=== PATIENT | female | born 1935 | race Caucasian/White ===

== ENCOUNTER 2017-08-24 14:57 | Emergency (ER) | payer MEDICARE, BC ==
[~2017-08-24] VITALS: Ht 165.1 cm; Wt 78.0 kg
[~2017-08-24 14:57] MED LIST: AMIT10TA PO; ASPI-496 PO; CALC200T3 PO; CARV12.52 PO; CARV3.1212 PO; DIGO125T PO; DONE10TA14 PO; FOLI1TAB7 PO; HYDR-3240 PO; INSU500V SQ; LEVO500T47 PO; MAGN400T26 PO; METF500T4 PO; METH10TA6 PO; METH5TAB6 PO; POLY17PO5 PO; SIMV40TA3 PO; SITA100T PO; TRIA1CAP3 PO; ZOLP10TA5 PO
[2017-08-24] MEDS ORDERED: LIDOCAINE 1%, 20ML ONE (15:22)
[2017-08-24] MEDS ORDERED: DIPH,PERTUSS(ACELL),TET VAC/PF 0.5 ML IM-VACC ONE ×2 (15:22→15:30)
[2017-08-24] MEDS ORDERED: LIDOCAINE 1%-EPI 1:100K, 20ML SQ ONE (15:30)
[2017-08-24 15:41] VITALS: BP 169/91
[2017-08-24] MEDS ORDERED: ACETAMINOPHEN 325 MG TABLET ONE (16:38)
[2017-08-24] MEDS ORDERED: ACETAMINOPHEN 325 MG TABLET PO ONE (17:00)
== END 2017-08-24 18:33 | disposition home or self-care (01) ==
LOC: ED 15:33
DX: S01.01XA Laceration without foreign body of scalp, initial encounter (principal); I10 Essential (primary) hypertension; E11.9 Type 2 diabetes mellitus without complications; W19.XXXA Unspecified fall, initial encounter; Y93.89 Activity, other specified; Y92.009 Unspecified place in unspecified non-institutional (private) residence as the place of occurrence of the external cause; Y99.9 Unspecified external cause status
CPT/HCPCS: 12002; 70450; 90471; 90715; 93005; 99284; J3490

== ENCOUNTER 2018-04-22 18:32 | Inpatient (IN) | payer MEDICARE, BC ==
[~2018-04-22] VITALS: Ht 165.1 cm; Wt 72.1 kg
[~2018-04-22 18:32] MED LIST changes: -METF500T4 PO; +METF500T5 PO
[2018-04-22 19:06] LABS: BASOPHILS # (AUTO) 0.04 x10^3/uL (0-0.1); BASOPHILS % (AUTO) 0 % (0-1); EOSINOPHILS % (AUTO) 0 % (1-7); LYMPHOCYTES # (AUTO) 0.71 x10^3/uL (1-3.4); LYMPHOCYTES % (AUTO) 6 % (22-44); MD NO; MEAN CORPUSCULAR HGB CONC 33.4 g/dL (32.4-35.8); MEAN PLATELET VOLUME 8.8 fL (7.4-10.4); MONOCYTES # (AUTO) 0.54 x10^3/uL (0.2-0.8); MONOCYTES % (AUTO) 4 % (2-9); NEUTROPHILS # (AUTO) 11.29 x10^3/uL (1.8-6.8); NEUTROPHILS % (AUTO) 90 % (42-75); PLATELET COUNT 224 x10^3/uL (130-400); RED CELL DISTRIBUTION WIDTH 16.8 % (9.6-15.2)
[2018-04-22 19:17] LABS: ALBUMIN 3.6 g/dL (3.4-5.0); ANION GAP 12 mmol/L (5-15); CALCIUM 10.6 mg/dL (8.5-10.1); CHLORIDE 108 mmol/L (98-107); CREATININE 2.98 mg/dL (0.55-1.02)
[2018-04-22] MEDS ORDERED: ZOLP10TA5 PO (19:23)
[2018-04-22] MEDS ORDERED: HYDR-3245 PO (19:24)
[2018-04-22] MEDS ORDERED: GLIP2.5T16 PO (19:25)
[2018-04-22] MEDS ORDERED: DILT240C PO (19:26)
[2018-04-22] MEDS ORDERED: LISI-167 PO (19:27)
[2018-04-22] MEDS ORDERED: SITA100T PO (19:28)
[2018-04-22] MEDS ORDERED: SODIUM CHLORIDE 0.9% 1,000ML IVBOLUS ONE (19:30)
[2018-04-22] MEDS ORDERED: NPH,100V SQ-INSULIN (19:32)
[2018-04-22 19:40] LABS: TROPONIN I 0.033 ng/mL (0.000-0.045)
[2018-04-22] MEDS ORDERED: SODIUM CHLORIDE 0.9% 1,000 ML IV ONE (20:19)
[2018-04-22] MEDS: PLEASE ENTER HEIGHT AND WEIGHT MC SCH (20:28)
[2018-04-22] MEDS: PLEASE ENTER ALLERGIES MC SCH (20:28)
[2018-04-22] MEDS ORDERED: ONDANSETRON 2MG/ML, 2ML IVPush PRN ×2 (20:30→21:00)
[2018-04-22] MEDS ORDERED: D5%-0.45NACL+KCL 20MEQ 1,000 ML IV SCH (20:57)
[2018-04-22] MEDS ORDERED: hydrALAzine 20 MG/ML, 1ML IVPush PRN (21:00)
[2018-04-22] MEDS ORDERED: POLYETHYLENE GLYCOL 17 GM PACKET PO PRN (21:00)
[2018-04-22] MEDS ORDERED: BISACODYL 10 MG SUPP PR PRN (21:00)
[2018-04-22 21:04] LABS: CULTURE INDICATED? YES; MICROSCOPIC INDICATED
[2018-04-22] MEDS ORDERED: DEXTROSE 50%, 50ML SYRINGE ONE (21:14)
[2018-04-22] MEDS ORDERED: INSULIN REGULAR 100 UNITS/ML, 3ML VIAL ONE (21:15)
[2018-04-22] MEDS ORDERED: DEXTROSE 50%, 50ML SYRINGE IVPush ONE (21:30)
[2018-04-22] MEDS ORDERED: INSULIN REGULAR 100 UNITS/ML, 3ML VIAL IVPush ONE (21:30)
[2018-04-22 21:50] LABS: % IRON SATURATION 14 % (20-55); ANION GAP 15 mmol/L (5-15); CALCIUM 9.9 mg/dL (8.5-10.1); CHLORIDE 107 mmol/L (98-107); CREATININE 2.73 mg/dL (0.55-1.02); IRON LEVEL 39 mcg/dL (50-170); TOTAL IRON BINDING CAPACITY 279 mcg/dL (250-450)
[2018-04-22 21:54] LABS: TRANSFERRIN 216 mg/dL (200-360); TROPONIN I 0.041 ng/mL (0.000-0.045)
[2018-04-22 22:00] VITALS: BP 158/60
[2018-04-22] MEDS ORDERED: D5%-0.45% NACL 1,000 ML IV SCH (22:00)
[2018-04-22] MEDS: ACETAMINOPHEN 325 MG TABLET PO PRN (22:35)
[2018-04-22] MEDS: HEPARIN 5,000 UNITS/ML, 1ML SQ SCH (22:35)
[2018-04-23 01:12] LABS: CREATININE,URINE RANDOM 56.2 mg/dL
[2018-04-23 01:40] VITALS: BP 138/75
[2018-04-23] MEDS: ACETAMINOPHEN 325 MG TABLET PO PRN (02:47)
[2018-04-23] MEDS: PLEASE ENTER HEIGHT AND WEIGHT MC SCH ×2 (03:43→12:00)
[2018-04-23] MEDS: PLEASE ENTER ALLERGIES MC SCH ×2 (03:44→12:00)
[2018-04-23 05:33] LABS: MEAN CORPUSCULAR HEMOGLOBIN 31.8 pg (27.0-34.8); MEAN CORPUSCULAR HGB CONC 33.2 g/dL (32.4-35.8); MEAN CORPUSCULAR VOLUME 95.9 fL (80-100); MEAN PLATELET VOLUME 8.6 fL (7.4-10.4); PLATELET COUNT 217 x10^3/uL (130-400); RED BLOOD COUNT 3.08 x10^6/uL (3.82-5.3); RED CELL DISTRIBUTION WIDTH 17.3 % (9.6-15.2)
[2018-04-23 05:45] LABS: ALANINE AMINOTRANSFERASE 34 U/L (12-78); ALBUMIN 3.2 g/dL (3.4-5.0); ANION GAP 15 mmol/L (5-15); CHLORIDE 110 mmol/L (98-107)
[2018-04-23 05:50] LABS: ALKALINE PHOSPHATASE 154 U/L (45-117); BILIRUBIN,TOTAL 1.4 mg/dL (0.2-1.0); CREATININE 2.86 mg/dL (0.55-1.02); TOTAL PROTEIN 6.9 g/dL (6.4-8.2); TROPONIN I 0.087 ng/mL (0.000-0.045)
[2018-04-23] MEDS: HEPARIN 5,000 UNITS/ML, 1ML SQ SCH ×3 (05:56→23:27)
[2018-04-23] MEDS: CARVEDILOL 3.125 MG TABLET PO SCH ×2 (05:56→17:37)
[2018-04-23 06:10] LABS: BASOPHILS # (AUTO) 0.11 x10^3/uL (0-0.1); BASOPHILS % (AUTO) 1 % (0-1); EOSINOPHILS % (AUTO) 0 % (1-7); LYMPHOCYTES # (AUTO) 1.01 x10^3/uL (1-3.4); LYMPHOCYTES % (AUTO) 8 % (22-44); MD SCAN; MONOCYTES # (AUTO) 1.08 x10^3/uL (0.2-0.8); MONOCYTES % (AUTO) 9 % (2-9); NEUTROPHILS % (AUTO) 83 % (42-75)
[2018-04-23 07:26] VITALS: BP 167/62
[2018-04-23] MEDS: DONEPEZIL 10 MG TABLET PO SCH (07:56)
[2018-04-23] MEDS: HYDROcodone/APAP 10/325 MG TABLET PO SCH (07:57)
[2018-04-23] MEDS: MULTIVITAMIN 1 TABLET PO SCH (07:57)
[2018-04-23] MEDS: ASPIRIN 81 MG TABLET EC PO SCH (07:57)
[2018-04-23] MEDS: DILTIAZEM 240 MG CAP.ER.24H PO SCH (07:57)
[2018-04-23] MEDS: AMITRIPTYLINE 10 MG TABLET PO SCH ×2 (07:57→23:27)
[2018-04-23] MEDS: ATORVASTATIN 20 MG TABLET PO SCH (07:57)
[2018-04-23] MEDS: INSULIN LISPRO 100 UNITS/ML, PEN SQ-INSULIN SCH ×4 (09:02→23:26)
[2018-04-23] MEDS: SODIUM CHLORIDE 0.9% 1,000 ML IV SCH ×2 (11:04→23:27)
[2018-04-23] MEDS: CEFTRIAXONE PMX 1GM/50ML 50 ML IV SCH (11:04)
[2018-04-23 11:32] LABS: TROPONIN I 0.092 ng/mL (0.000-0.045)
[2018-04-23] MEDS ORDERED: MORPHINE SULFATE 4 MG/ML, 1ML ONE (11:41)
[2018-04-23] MEDS: morphine SULFATE 10 MG/ML, 1ML IVPush PRN ×2 (11:47→17:04)
[2018-04-23 12:45] VITALS: BP 114/67
[2018-04-23 15:54] LABS: TROPONIN I 0.083 ng/mL (0.000-0.045)
[2018-04-23 18:58] VITALS: BP 129/72
[2018-04-23] MEDS: INSULIN REGULAR 100 UNITS/ML, 3ML VIAL SQ-INSULIN SCH (23:27)
[2018-04-24 00:57] VITALS: BP 124/78
[2018-04-24 05:40] LABS: MEAN CORPUSCULAR HEMOGLOBIN 32.2 pg (27.0-34.8); MEAN CORPUSCULAR HGB CONC 33.7 g/dL (32.4-35.8); MEAN CORPUSCULAR VOLUME 95.5 fL (80-100); MEAN PLATELET VOLUME 8.6 fL (7.4-10.4); PLATELET COUNT 220 x10^3/uL (130-400)
[2018-04-24] MEDS: HEPARIN 5,000 UNITS/ML, 1ML SQ SCH ×3 (05:42→21:57)
[2018-04-24] MEDS: morphine SULFATE 10 MG/ML, 1ML IVPush PRN ×4 (05:42→22:28)
[2018-04-24] MEDS: CARVEDILOL 3.125 MG TABLET PO SCH ×2 (05:45→17:45)
[2018-04-24] MEDS: SODIUM CHLORIDE 0.9% 1,000 ML IV SCH ×2 (05:47→22:17)
[2018-04-24 05:54] LABS: CHLORIDE 112 mmol/L (98-107)
[2018-04-24 06:08] LABS: ALANINE AMINOTRANSFERASE 29 U/L (12-78); ALKALINE PHOSPHATASE 131 U/L (45-117); ANION GAP 12 mmol/L (5-15); BILIRUBIN,TOTAL 0.8 mg/dL (0.2-1.0); CALCIUM 12.1 mg/dL (8.5-10.1); CREATININE 1.61 mg/dL (0.55-1.02); TOTAL PROTEIN 6.4 g/dL (6.4-8.2)
[2018-04-24 06:09] LABS: BASOPHILS # (AUTO) 0.12 x10^3/uL (0-0.1); BASOPHILS % (AUTO) 1 % (0-1); EOSINOPHILS # (AUTO) 0.09 x10^3/uL (0-0.4); EOSINOPHILS % (AUTO) 1 % (1-7); LYMPHOCYTES # (AUTO) 1.28 x10^3/uL (1-3.4); LYMPHOCYTES % (AUTO) 11 % (22-44); MD SCAN; MONOCYTES # (AUTO) 1.59 x10^3/uL (0.2-0.8); MONOCYTES % (AUTO) 13 % (2-9); NEUTROPHILS # (AUTO) 8.88 x10^3/uL (1.8-6.8); NEUTROPHILS % (AUTO) 74 % (42-75)
[2018-04-24 06:23] LABS: HEMOGLOBIN A1C 7.4 % (4.2-6.3)
[2018-04-24 07:14] VITALS: BP 137/68
[2018-04-24] MEDS: HYDROcodone/APAP 10/325 MG TABLET PO SCH (08:30)
[2018-04-24] MEDS: DILTIAZEM 240 MG CAP.ER.24H PO SCH (08:30)
[2018-04-24] MEDS: INSULIN LISPRO 100 UNITS/ML, PEN SQ-INSULIN SCH ×4 (08:31→21:59)
[2018-04-24] MEDS: DONEPEZIL 10 MG TABLET PO SCH (08:31)
[2018-04-24] MEDS: MULTIVITAMIN 1 TABLET PO SCH (08:31)
[2018-04-24] MEDS: ATORVASTATIN 20 MG TABLET PO SCH (08:31)
[2018-04-24] MEDS: ASPIRIN 81 MG TABLET EC PO SCH (08:31)
[2018-04-24] MEDS: AMITRIPTYLINE 10 MG TABLET PO SCH ×2 (08:31→22:00)
[2018-04-24] MEDS: DOCUSATE 100 MG CAPSULE PO PRN (10:58)
[2018-04-24] MEDS: CEFTRIAXONE PMX 1GM/50ML 50 ML IV SCH (10:58)
[2018-04-24 13:40] VITALS: BP 124/74
[2018-04-24 19:39] VITALS: BP 130/75
[2018-04-24] MEDS: INSULIN REGULAR 100 UNITS/ML, 3ML VIAL SQ-INSULIN SCH (21:59)
[2018-04-25 02:05] VITALS: BP 156/80
[2018-04-25] MEDS: morphine SULFATE 10 MG/ML, 1ML IVPush PRN (02:30)
[2018-04-25 05:25] VITALS: BP 145/84
[2018-04-25] MEDS: SODIUM CHLORIDE 0.9% 1,000 ML IV SCH (05:27)
[2018-04-25] MEDS: CARVEDILOL 3.125 MG TABLET PO SCH ×2 (05:27→17:24)
[2018-04-25] MEDS: HEPARIN 5,000 UNITS/ML, 1ML SQ SCH ×2 (05:27→12:31)
[2018-04-25 05:56] LABS: ALBUMIN 2.8 g/dL (3.4-5.0); ANION GAP 9 mmol/L (5-15); CALCIUM 11.2 mg/dL (8.5-10.1); CHLORIDE 113 mmol/L (98-107)
[2018-04-25 05:59] LABS: BASOPHILS # (AUTO) 0.07 x10^3/uL (0-0.1); BASOPHILS % (AUTO) 1 % (0-1); EOSINOPHILS # (AUTO) 0.19 x10^3/uL (0-0.4); EOSINOPHILS % (AUTO) 2 % (1-7); LYMPHOCYTES # (AUTO) 1.49 x10^3/uL (1-3.4); LYMPHOCYTES % (AUTO) 17 % (22-44); MD NO; MEAN CORPUSCULAR HEMOGLOBIN 32.4 pg (27.0-34.8); MEAN CORPUSCULAR VOLUME 95.2 fL (80-100); MEAN PLATELET VOLUME 8.8 fL (7.4-10.4); MONOCYTES # (AUTO) 1.34 x10^3/uL (0.2-0.8); MONOCYTES % (AUTO) 15 % (2-9); NEUTROPHILS % (AUTO) 66 % (42-75); PLATELET COUNT 207 x10^3/uL (130-400); RED BLOOD COUNT 2.77 x10^6/uL (3.82-5.3); RED CELL DISTRIBUTION WIDTH 17.4 % (9.6-15.2)
[2018-04-25 06:00] LABS: ALANINE AMINOTRANSFERASE 25 U/L (12-78); ALKALINE PHOSPHATASE 116 U/L (45-117); BILIRUBIN,TOTAL 0.8 mg/dL (0.2-1.0); CREATININE 1.04 mg/dL (0.55-1.02); TOTAL PROTEIN 6.1 g/dL (6.4-8.2)
[2018-04-25 07:38] VITALS: BP 162/83
[2018-04-25] MEDS: AMITRIPTYLINE 10 MG TABLET PO SCH (09:11)
[2018-04-25] MEDS: DILTIAZEM 240 MG CAP.ER.24H PO SCH (09:11)
[2018-04-25] MEDS: MULTIVITAMIN 1 TABLET PO SCH (09:11)
[2018-04-25] MEDS: ASPIRIN 81 MG TABLET EC PO SCH (09:11)
[2018-04-25] MEDS: DONEPEZIL 10 MG TABLET PO SCH (09:11)
[2018-04-25] MEDS: HYDROcodone/APAP 10/325 MG TABLET PO SCH (09:11)
[2018-04-25] MEDS: INSULIN LISPRO 100 UNITS/ML, PEN SQ-INSULIN SCH ×3 (09:12→17:24)
[2018-04-25] MEDS ORDERED: SODIUM CHLORIDE 0.9% 1,000ML IVBOLUS ONE (10:00)
[2018-04-25] MEDS ORDERED: SODIUM CHLORIDE 0.9% 1,000 ML IV SCH (10:00)
[2018-04-25 11:32] LABS: CALCIUM 11.7 mg/dL (8.5-10.1)
[2018-04-25 12:41] VITALS: BP 158/65
[2018-04-25] MEDS ORDERED: INSU100V8 SQ (14:54)
[2018-04-25] MEDS ORDERED: HYDROcodone/APAP 5/325 TABLET PO ONE (15:30)
[2018-04-25] MEDS: DOCUSATE 100 MG CAPSULE PO PRN (18:50)
== END 2018-04-25 19:19 | DRG 542 ==
LOC: ED 19:22 → EDIP 20:19 → 4WST 22:28
PROVIDERS: ADMIT Hospitalist; ATTEND Hospitalist
DX: M80.08XA Age-related osteoporosis with current pathological fracture, vertebra(e), initial encounter for fracture (principal); N17.0 Acute kidney failure with tubular necrosis; E87.2 Acidosis; T82.857A Stenosis of other cardiac prosthetic devices, implants and grafts, initial encounter; N39.0 Urinary tract infection, site not specified; W18.30XA Fall on same level, unspecified, initial encounter; E78.5 Hyperlipidemia, unspecified; I11.9 Hypertensive heart disease without heart failure; D64.9 Anemia, unspecified; D72.829 Elevated white blood cell count, unspecified; E05.90 Thyrotoxicosis, unspecified without thyrotoxic crisis or storm; E11.65 Type 2 diabetes mellitus with hyperglycemia; E83.52 Hypercalcemia; E87.5 Hyperkalemia; F03.90 Unspecified dementia, unspecified severity, without behavioral disturbance, psychotic disturbance, mood disturbance, and anxiety; G89.29 Other chronic pain; H91.90 Unspecified hearing loss, unspecified ear; I25.10 Atherosclerotic heart disease of native coronary artery without angina pectoris; I35.0 Nonrheumatic aortic (valve) stenosis; I48.2 Chronic atrial fibrillation; Y83.1 Surgical operation with implant of artificial internal device as the cause of abnormal reaction of the patient, or of later complication, without mention of misadventure at the time of the procedure; Z66 Do not resuscitate; Y92.009 Unspecified place in unspecified non-institutional (private) residence as the place of occurrence of the external cause; Z82.49 Family history of ischemic heart disease and other diseases of the circulatory system; Z79.4 Long term (current) use of insulin; Z95.1 Presence of aortocoronary bypass graft; Z90.710 Acquired absence of both cervix and uterus; Z83.3 Family history of diabetes mellitus; Z95.2 Presence of prosthetic heart valve; Z90.49 Acquired absence of other specified parts of digestive tract
CPT/HCPCS: 36415; 71250; 72110; 76770; 80048; 80053; 81001; 82040; 82306; 82310; 82330; 82397; 82436; 82550; 82553; 82570; 82728; 82962; 83036; 83540; 83550; 83970; 84080; 84133; 84300; 84439; 84443; 84466; 84484; 85025; 87086; 93005; 93306; 99285; J0696; J1644; J1815; J2270; J7030